=== PATIENT | female | born 1965 | race Caucasian/White ===

== ENCOUNTER → 2017-09-25 | Outpatient (CLI) | payer BC ==
[2017-09-25 16:05] LABS: Basophils # (auto) 0 uL; Basophils % (auto) 0.5 % (0.0-2.0); Eosinophils # (auto) 0.1 uL; Hematocrit 42.8 % (36.0-46.0); Hemoglobin 14.8 g/dL (12.2-16.2); Lymphocytes # (auto) 1.2 uL; Lymphocytes % (auto) 15.4 % (10.0-50.0); Mean Corpuscular Hemoglobin 33.2 pg (28.0-32.0); Mean Corpuscular Hgb Conc. 34.5 g/dL (32.0-36.0); Mean Corpuscular Volume 96.2 fL (80.0-100.0); Monocytes # (auto) 0.5 uL; Neutrophils # (auto) 5.9 uL; Neutrophils % (auto) 77.1 % (37.0-80.0); Nucleated Red Blood Cells % 0.1 %; Platelet Count (auto) 169 10^3/uL (140-450); Red Blood Cells 4.45 10^6/uL (4.0-5.20); Red Cell Distribution Width 12.2 % (11.8-14.3); White Blood Cell 7.6 10^3/uL (4.4-10.8)
[2017-09-25 16:22] LABS: Albumin 4.2 g/dL (3.4-5.0); BUN/Creatinine Ratio 26.8; Bilirubin, Total 0.5 mg/dL (0.2-1.0); Calcium 8.9 mg/dL (8.5-10.1); Potassium 4.4 mmol/L (3.5-5.1); Total Protein 7.7 g/dL (6.4-8.2)
== END | disposition home or self-care (01) ==
LOC: LAB 12:17
PROVIDERS: ATTEND Internal Medicine Cardiovascular Disease
DX: I10 Essential (primary) hypertension (principal); B96.81 Helicobacter pylori [H. pylori] as the cause of diseases classified elsewhere; R64 Cachexia; D64.9 Anemia, unspecified; E03.9 Hypothyroidism, unspecified; E78.00 Pure hypercholesterolemia, unspecified; E11.9 Type 2 diabetes mellitus without complications
CPT/HCPCS: 36415; 80053; 82150; 83690; 85025; 86677

== ENCOUNTER → 2017-11-29 | Outpatient (CLI) | payer BC ==
[2017-11-29 12:54] LABS: Alanine Aminotransferase 27 U/L (13-56); Albumin 3.9 g/dL (3.4-5.0); Alkaline Phosphatase 87 U/L (45-117); Aspartate Aminotransferase 20 U/L (15-37); Bilirubin, Direct < 0.1 mg/dL (0-0.2); Bilirubin, Total 0.4 mg/dL (0.2-1.0); Total Protein 7.3 g/dL (6.4-8.2)
== END | disposition home or self-care (01) ==
LOC: LAB 08:02
PROVIDERS: ATTEND Internal Medicine
DX: K74.1 Hepatic sclerosis (principal); I10 Essential (primary) hypertension; E03.9 Hypothyroidism, unspecified; E11.9 Type 2 diabetes mellitus without complications; E78.00 Pure hypercholesterolemia, unspecified
CPT/HCPCS: 36415; 80076

== ENCOUNTER → 2018-10-03 | Outpatient (CLI) | payer BC ==
[2018-10-03 12:17] LABS: Urine Blood 2+ /uL (Negative); Urine Specific Gravity 1.021 (1.001-1.035)
[2018-10-03 12:23] LABS: Basophils # (auto) 0.1 uL; Basophils % (auto) 1.2 % (0.0-2.0); Eosinophils # (auto) 0.2 uL; Eosinophils % (auto) 3.8 % (0.0-7.0); Hematocrit 42.7 % (36.0-46.0); Hemoglobin 14.4 g/dL (12.2-16.2); Lymphocytes # (auto) 1.6 uL; Lymphocytes % (auto) 34.9 % (10.0-50.0); Mean Corpuscular Hemoglobin 32.7 pg (28.0-32.0); Mean Corpuscular Hgb Conc. 33.7 g/dL (32.0-36.0); Mean Corpuscular Volume 97.1 fL (80.0-100.0); Monocytes # (auto) 0.3 uL; Monocytes % (auto) 7.4 % (0.0-12.0); Neutrophils # (auto) 2.4 uL; Neutrophils % (auto) 52.7 % (37.0-80.0); Nucleated Red Blood Cells % 0.1 %; Platelet Count (auto) 173 10^3/uL (140-450); Red Cell Distribution Width 12.4 % (11.8-14.3); White Blood Cell 4.5 10^3/uL (4.4-10.8)
[2018-10-03 12:47] LABS: Albumin 3.8 g/dL (3.4-5.0); Potassium 4.2 mmol/L (3.5-5.1)
[2018-10-03 12:53] LABS: BUN/Creatinine Ratio 27.7; Bilirubin, Total 0.3 mg/dL (0.2-1.0); Total Protein 7.2 g/dL (6.4-8.2)
[2018-10-03 13:25] LABS: Free T4 (Free Thyroxine) 1.02 ng/dL (0.89-1.76)
== END | disposition home or self-care (01) ==
LOC: LAB 08:09
PROVIDERS: ATTEND Internal Medicine Cardiovascular Disease
DX: Z00.00 Encounter for general adult medical examination without abnormal findings (principal); E03.9 Hypothyroidism, unspecified; E55.9 Vitamin D deficiency, unspecified; N39.0 Urinary tract infection, site not specified; D51.9 Vitamin B12 deficiency anemia, unspecified; Z79.899 Other long term (current) drug therapy
CPT/HCPCS: 36415; 80053; 80061; 81003; 82306; 82607; 83036; 84439; 84443; 85025

== ENCOUNTER → 2018-10-10 | Outpatient (CLI) | payer BC ==
[2018-10-10 12:04] LABS: Urine Blood 1+ /uL (Negative); Urine Specific Gravity 1.016 (1.001-1.035)
== END | disposition home or self-care (01) ==
LOC: LAB 09:35
PROVIDERS: ATTEND Internal Medicine
DX: N39.0 Urinary tract infection, site not specified (principal); R82.79 Other abnormal findings on microbiological examination of urine
CPT/HCPCS: 81003; 87086

== ENCOUNTER → 2018-11-21 | Outpatient (CLI) | payer BC ==
[2018-11-21 12:49] LABS: Alanine Aminotransferase 25 U/L (13-56); Albumin 3.9 g/dL (3.4-5.0); Alkaline Phosphatase 90 U/L (45-117); Aspartate Aminotransferase 19 U/L (15-37); Bilirubin, Direct < 0.1 mg/dL (0-0.2); Bilirubin, Total 0.4 mg/dL (0.2-1.0); Cholesterol 235 mg/dL (< 200); HDL Cholesterol 51 mg/dL (40-59); LDL Cholesterol 157 mg/dL (< 100); Total Protein 7.8 g/dL (6.4-8.2); Triglycerides 140 mg/dL (< 150)
== END | disposition home or self-care (01) ==
LOC: LAB 08:13
PROVIDERS: ATTEND Internal Medicine
DX: E78.5 Hyperlipidemia, unspecified (principal); K74.1 Hepatic sclerosis
CPT/HCPCS: 36415; 80061; 80076

== ENCOUNTER → 2019-01-09 | Outpatient (CLI) | payer BC ==
[2019-01-09 12:18] LABS: Albumin 4.3 g/dL (3.4-5.0); Bilirubin, Direct 0.1 mg/dL (0-0.2); Bilirubin, Total 0.4 mg/dL (0.2-1.0); Total Protein 7.7 g/dL (6.4-8.2)
== END | disposition home or self-care (01) ==
LOC: LAB 08:04
PROVIDERS: ATTEND Internal Medicine
DX: E78.5 Hyperlipidemia, unspecified (principal); K74.1 Hepatic sclerosis
CPT/HCPCS: 36415; 80061; 80076

== ENCOUNTER → 2019-04-06 | Outpatient (CLI) | payer BC ==
[2019-04-06 13:34] LABS: Bilirubin, Direct 0.1 mg/dL (0-0.2); Bilirubin, Total 0.4 mg/dL (0.2-1.0); Total Protein 7.7 g/dL (6.4-8.2)
== END | disposition home or self-care (01) ==
LOC: LAB 08:10
PROVIDERS: ATTEND Internal Medicine
DX: E78.5 Hyperlipidemia, unspecified (principal)
CPT/HCPCS: 36415; 80061; 80076

== ENCOUNTER → 2020-09-16 | Outpatient (CLI) | payer BC ==
[2020-09-16 11:30] LABS: Urine Blood 1+ /uL (Negative); Urine Specific Gravity 1.012 (1.001-1.035)
[2020-09-16 11:39] LABS: Basophils # (auto) 0 10 ^3/uL (0-0.2); Basophils % (auto) 0.8 % (0.0-2.0); Eosinophils # (auto) 0.2 10 ^3/uL (0-0.8); Eosinophils % (auto) 3.3 % (0.0-7.0); Hematocrit 40.2 % (36.0-46.0); Hemoglobin 13.6 g/dL (12.2-16.2); Lymphocytes # (auto) 1.4 10 ^3/uL (0.4-5.4); Lymphocytes % (auto) 31.2 % (10.0-50.0); Mean Corpuscular Hemoglobin 32.5 pg (28.0-32.0); Mean Corpuscular Hgb Conc. 33.8 g/dL (32.0-36.0); Mean Corpuscular Volume 96.1 fL (80.0-100.0); Monocytes # (auto) 0.3 10 ^3/uL (0-1.3); Monocytes % (auto) 6.8 % (0.0-12.0); Neutrophils # (auto) 2.7 10 ^3/uL (1.6-8.6); Neutrophils % (auto) 57.9 % (37.0-80.0); Nucleated Red Blood Cells % 0.1 %; Platelet Count (auto) 175 10^3/uL (140-450); Red Blood Cells 4.19 10^6/uL (4.0-5.20); Red Cell Distribution Width 12.6 % (11.8-14.3); White Blood Cell 4.6 10^3/uL (4.4-10.8)
[2020-09-16 11:56] LABS: Free T4 (Free Thyroxine) 0.98 ng/dL (0.89-1.76)
[2020-09-16 12:33] LABS: Calcium 9.1 mg/dL (8.5-10.1); Potassium 4.9 mmol/L (3.5-5.1)
[2020-09-16 12:39] LABS: Bilirubin, Total 0.6 mg/dL (0.2-1.0); Total Protein 7.2 g/dL (6.4-8.2)
[2020-09-16 14:21] LABS: BUN/Creatinine Ratio 23.8
== END | disposition home or self-care (01) ==
LOC: LAB 08:51
PROVIDERS: ATTEND Internal Medicine
DX: D51.3 Other dietary vitamin B12 deficiency anemia (principal)
CPT/HCPCS: 36415; 80053; 80061; 81003; 82306; 82607; 83036; 84439; 84443; 85025

== ENCOUNTER → 2022-05-11 | Outpatient (CLI) | payer OTHER | END | disposition home or self-care (01) | LOC: Rad HDHVI 12:55 | PROVIDERS: ATTEND Internal Medicine Cardiovascular Disease | DX: I10 Essential (primary) hypertension (principal); E78.00 Pure hypercholesterolemia, unspecified | CPT/HCPCS: 93306 ==

== ENCOUNTER → 2022-05-21 | Outpatient (CLI) | payer OTHER | END | disposition home or self-care (01) | LOC: Rad HDHVI 12:48 | PROVIDERS: ATTEND Internal Medicine Cardiovascular Disease | DX: I82.402 Acute embolism and thrombosis of unspecified deep veins of left lower extremity (principal); R60.9 Edema, unspecified | CPT/HCPCS: 93926; 93971 ==

== ENCOUNTER → 2022-11-12 | Outpatient (CLI) | payer OTHER | END | disposition home or self-care (01) | LOC: Rad HDHVI 08:14 | PROVIDERS: ATTEND Internal Medicine Cardiovascular Disease | DX: Z01.818 Encounter for other preprocedural examination (principal) | CPT/HCPCS: 71046 ==

== ENCOUNTER → 2024-06-05 | Outpatient (CLI) | payer OTHER | END | disposition home or self-care (01) | LOC: Rad HDHVI 12:10 | PROVIDERS: ATTEND Internal Medicine Cardiovascular Disease | DX: I25.82 Chronic total occlusion of coronary artery (principal) | CPT/HCPCS: 93306 ==